=== PATIENT | female | born 1950 | race Caucasian/White ===

== ENCOUNTER → 2017-04-24 | Outpatient (CLI) | payer OTHER, MEDICARE | LOC: FIMAGING 09:40 | PROVIDERS: ATTEND Obstetrics & Gynecology Gynecology | DX: Z12.31 Encounter for screening mammogram for malignant neoplasm of breast (principal) | CPT/HCPCS: G0202 ==

== ENCOUNTER → 2017-04-25 | Outpatient (CLI) | payer OTHER, MEDICARE | LOC: BMCIMAGING 10:29 | PROVIDERS: ATTEND Internal Medicine | DX: M51.37 Other intervertebral disc degeneration, lumbosacral region (principal) ==

== ENCOUNTER → 2017-06-24 | Outpatient (CLI) | payer OTHER, MEDICARE | LOC: BMCIMAGING 07:16 | PROVIDERS: ATTEND Physician Assistant | DX: K76.0 Fatty (change of) liver, not elsewhere classified (principal); K76.89 Other specified diseases of liver; R16.0 Hepatomegaly, not elsewhere classified; I70.0 Atherosclerosis of aorta; Z90.49 Acquired absence of other specified parts of digestive tract ==

== ENCOUNTER → 2018-05-03 | Outpatient (CLI) | payer OTHER, MEDICARE | LOC: FIMAGING 14:41 | PROVIDERS: ATTEND Obstetrics & Gynecology Gynecology | DX: Z12.31 Encounter for screening mammogram for malignant neoplasm of breast (principal) ==

== ENCOUNTER 2018-05-22 11:55 | Inpatient (IN) | payer OTHER, MEDICARE ==
[2018-05-22 12:17] LABS: PLATELET COUNT 245 10^3/uL (150-400)
--- NOTE | 2018-05-22 12:19 | EDPHY ---
HPI/HX/ROS/PE/MDM Narrative: CLINICAL IMPRESSION: Run of ventricular tachycardia during stress test, intermittent chest pain x2 months ASSESSMENT/PLAN: This is a 68-year-old female with a history of diabetes, hypertension, hyperlipidemia, presents to the emergency department from [facility] Cardiology after she apparently had a 2 min run of ventricular tachycardia during a nuclear treadmill stress test ordered by her PCP. Patient reportedly came out of tachycardia only when she vagal'd. She arrives in the ED having received 4 aspirin, sublingual nitro, and is currently chest pain-free. She reports a 2 month history of intermittent epigastric pain and shortness of breath awakens her at night and was scheduled for stress test today by her primary care doctor. She has never seen a public service administrator. Case discussed with Dr. Sunday Denton who took the patient to the agriculture laborer from the ER. Discussed with Dr. Pena. Patient will be admitted to the PCU following her procedure with further cardiac evaluation. DIFFERENTIAL DX: Differential includes but not limited to ACS, acute PA, cardiac arrhythmia ED PROCEDURES: See lab and imaging results below ED COURSE: 12:15 p.m.: Case discussed with Nkechi Miller from Cardiology. They will come to the ED to evaluate the patient and likely take to the agriculture laborer. CHIEF COMPLAINT: V-tach during stress test HPI: This is a 68-year-old female with past medical history of hyperlipidemia, diabetes, and a BMI of 30 who presents to the emergency department from [facility] cardiology office where she was undergoing nuclear treadmill stress test this morning. Patient was reportedly scheduled for a stress test by her primary care doctor [facility] and has not ever seen a public service administrator. She reports during the stress test she she felt as though her heart was going to pound out of her chest and then she felt like she was going to faint. She has never had cardiac problems before. She also reports no history of hypertension but reportedly was hypertensive at 230 systolic prior to the procedure. She received sublingual nitro and 4 aspirin prior to arrival. She is currently chest pain-free. No recent travel although she does travel frequently. No leg pain or history of PE or DVT. PMH: Hypertension, hyperlipidemia, diabetes, BMI of 30 Pertinent Past Surgical History: None reported Family History: Father had pacemaker defibrillator placed in his 60s Social History: quit smoking 20 years ago REVIEW OF SYSTEMS: All other systems negative Constitutional: No fever, no chills, appetite change. ENT: No sore throat, congestion, ear pain. Cardiovascular: No chest pain, no palpitations. Respiratory: No cough, no shortness of breath. Gastrointestinal: No abdominal pain, no vomiting, diarrhea. Musculoskeletal: No back pain, joint swelling, joint pain, myalgias. Skin: No rashes, color change. Neurological: No headache, dizziness, weakness. PHYSICAL EXAM: General Appearance: Alert, oriented, appropriate, cooperative, NAD, well hydrated, non-toxic appearing, hypertensive, remainder of VSS, no hypoxia. HEENT: Oropharynx clear is no erythema or exudates, no tonsillar hypertrophy or asymmetry. Dentition without abnormality. Neck: Supple, nontender, no lymphadenopathy, no midline pain, FROM, no meningismus. Respiratory: There are no retractions, lungs are clear to auscultation. Cardiac: Regular rate and rhythm, no murmurs or gallops. Gastrointestinal: Abdomen is soft, nontender, bowel sounds normal, no masses/ hernia, no rigidity, guarding or focal peritoneal findings. Neurological: Alert and oriented x 3, CN 2-12 grossly intact, normal gait no ataxia, DTR's intact, normal sensation and strength Skin: Warm, dry, no rashes, no nodules on palpation. Musculoskeletal: Extremities are symmetrical, full range of motion, no tenderness, deformity, swelling, or erythema, no asymmetric LE swelling or calf pain. Psychiatric: Patient is oriented X 3, there is no agitation. MEDICAL DECISION MAKING: Patient was seen independently. Secondary supervising physician at time of evaluation was Dr Pena . Diagnosis: intermittent epigastric pain x 2 months, abnormal stress test today . New, requires workup Summary: See Assessment and Plan for summary of ED visit Clinical lab tests: ordered / reviewed. Independent visualization of images, tracing, or specimens: Yes . Decision to obtain medical records or history from someone other than the patient: [facility] Cardiology Discussed patient with another provider: Dr Pena who spoke with Dr. Denton Patient Progress: stable . (Sunday Ray) - Data Points Laboratory Results: Laboratory Results 05/22/18 12:00 05/22/18 12:00 Medications Given: Acetaminophen (Tylenol) 325 - 650 mg PO Q6 PRN PRN Reason: Pain, Mild to moderate Stop: 11/18/18 21:29 Last Admin: 05/23/18 05:16 Dose: 650 mg Discontinued Medications Amlodipine Besylate (Norvasc) 10 mg PO ONCE ONE Stop: 05/23/18 08:31 Last Admin: 05/23/18 08:28 Dose: 10 mg Point of Care Test Results: Chemistry 05/22/18 12:05 POC Troponin I 0.00 ng/mL ng/mL (0.00-0.08) General Time Seen by Provider: 05/22/18 12:05 Initial Vital Signs: Initial Vital Signs Temperature (C) 36.4 C 05/22/18 11:59 Heart Rate 107 H 05/22/18 11:59 Respiratory Rate 20 05/22/18 11:59 Blood Pressure 176/114 H 05/22/18 11:59 O2 Sat (%) 92 05/22/18 11:59 O2 Delivery Mode Room Air Allergies/Adverse Reactions: No Known Allergies Allergy (Unverified 08/07/12 11:47) Home Medications: Medication Instructions Recorded Cetirizine [ZyrTEC 10 mg (*)] 10 mg PO DAILY PRN 05/22/18 Cholecalciferol Vit D3 [Vitamin D3 1,000 units PO HS 05/22/18 (*)] Diclofenac Sodium [Voltaren 75 MG 75 mg PO BID 05/22/18 (*)] Omeprazole 40 mg PO DAILY@18 05/22/18 Simvastatin 40 mg PO HS 05/22/18 metFORMIN HCL [Glucophage 500 mg 500 mg PO BIDMEAL 05/22/18 (*)] Departure - Departure Disposition: To OP Cath/Surgery Clinical Impression: Abnormal stress test Condition: Fair
[2018-05-22 12:23] LABS: INR 0.93 (0.83-1.16); PROTIME(PATIENT) 12.7 SEC (12.0-15.0)
--- NOTE | 2018-05-22 12:26 | CPEKG ---
Test Reason : OPEN Blood Pressure : / mmHG Vent. Rate : 091 BPM Atrial Rate : 090 BPM P-R Int : 202 ms QRS Dur : 107 ms QT Int : 362 ms P-R-T Axes : 071 -03 074 degrees QTc Int : 446 ms Sinus rhythm Abnormal R-wave progression, early transition Confirmed by Tomi Pena ([id number]) on 05/22/2018 12:25:46 PM Referred By: Confirmed By:Tomi Pena
[2018-05-22] MEDS ORDERED: MIDAZOLAM 2 MG/2 ML VIAL ONE ×2 (13:11→13:53)
[2018-05-22] MEDS ORDERED: HEPARIN 10,000 UNIT/10 ML MDV (1,000 UNIT/ML) ONE (13:11)
[2018-05-22] MEDS ORDERED: VERAPAMIL 5 MG/2 ML VIAL ONE (13:11)
[2018-05-22] MEDS ORDERED: IOPAMIDOL (ISOVUE-370) 150 ML BTL IV ONE (13:11)
[2018-05-22] MEDS ORDERED: fentaNYL 100 MCG/2 ML INJ ONE ×2 (13:11→13:53)
[2018-05-22] MEDS ORDERED: LIDOCAINE 1% 300 MG/30 ML SDV ONE (13:11)
[2018-05-22] MEDS ORDERED: ATROPINE SULFATE 1 MG/10 ML SYR IVP PRN (14:14)
[2018-05-22] MEDS ORDERED: HYDROCODONE/APAP 5/325 TAB PO PRN (14:14)
[2018-05-22] MEDS ORDERED: ONDANSETRON 4 MG/2 ML VIAL IVP PRN (14:14)
[2018-05-22] MEDS ORDERED: NITROGLYCERIN 0.4 MG BTL SL PRN (14:14)
[2018-05-22] MEDS ORDERED: OXYCODONE/APAP 5/325 TAB PO PRN (14:14)
--- NOTE | 2018-05-22 14:42 | GHP ---
DATE OF ADMISSION: 05/22/2018 CHIEF COMPLAINT: Rapid heart rhythm during stress test. HISTORY OF PRESENT ILLNESS: The patient is a 68-year-old patient with a history of elevated fasting glucose and dyslipidemia, who presented to the emergency department following an abnormal stress test . The patient has recently been awakened on several occasions with chest discomfort and pressure and tightness located on the lower portion of her sternum, which has awakened her from sleep. She was s een by her primary care physician, Dr. Albertina Foote, at the [facility] where a stress test was recommended. At that time, for the first time in her life she was noted to be hypertensive, per the patient's report. The patient was slated for a nuclear stress test today, and shortly after ini tiating the test, the patient had occasional PVCs and then initiation of a wide-complex tachycardia w ith evidence of probable fusion beats, most consistent with underlying ventricular tachycardia. This did appear to be sustained and was greater than 30 seconds in duration, but less than 1 minute. Dur ing the episode, the patient noted a sensation that her heart was pounding in her chest and was radia ting to her neck, arm, and jaw. She also had tightness, which did not feel like an elephant on her c hest, but felt like someone was sitting on her chest or that there was a tightness in her chest and a wareness. She also had lightheadedness that felt as if she might pass out, which has never happened to her previously. She leads a relatively sedentary lifestyle and does not exercise from a cardiovascular standpoint rou can. She lives much of the year in [place] and walks occasionally on the beach and sometimes cycle s on a stationary bike. She has not noted orthopnea, PND (paroxysmal nocturnal dyspnea), chest pain with exertion, or decline in exercise tolerance. CURRENT MEDICATIONS: Include metformin and simvastatin she believes at 40 mg a day. She also takes diclofenac 75 mg twice daily. ALLERGIES: She is not known to be allergic to medications. PAST MEDICAL HISTORY: Significant for elevated fasting blood sugar and dyslipidemia. She has not whittington d a history of hypertension in the past. FAMILY HISTORY: Pertinent for the fact that her father had an electrical problem and one of the firs t defibrillators in the [place] following an electrophysiologic study that was performed in [facility]. Her dad ultimately lived to age 96. The patient's younger brothers both prematurely. On e of the brothers had paranoid schizophrenia and was found at home. He was on multiple medications f or his paranoid schizophrenia and at age 33. Her other brother in an automobile accident a t age 29, and she believes the autopsy did reveal evidence of drowning. It is unclear why he was caitlin ble to escape the submerged car. SOCIAL HISTORY: Pertinent for the fact that she stopped smoking in the 1980s and has less than a 20- pack-year history of smoking. She does not abuse alcohol or illicit drugs. PHYSICAL EXAMINATION: GENERAL: Today, the patient is somewhat anxious. VITAL SIGNS: Blood pressur e 172/100. Heart rate is 81 and regular. Respirations 16, unlabored. NECK: Reveals no JVD or pina tid bruit. HEART: Reveals a normal S1 and S2 with somewhat distant heart sounds secondary to her melani dy habitus. I do not appreciate an S3 or S4. She does not have evidence of a murmur. LUNGS: Clear to auscultation bilaterally without wheezes, rales, or rhonchi. ABDOMEN: Obese, with positive bowel sounds. It is nondistended and nontender. EXTREMITIES: Warm, dry, and well perfused without signi ficant peripheral edema. PERTINENT TEST RESULTS: Laboratory studies reveal a white count of 6.04, H and H of 13.8 and 41.2, w ith a platelet count of 245. Her coagulation numbers reveal PT/INR of 12.7 and 0.93, with an aPTT of 25.5. Her blood chemistry is unremarkable with a sodium of 138, potassium 4.5, BUN and creatinine o f 15 and 0.8, with a glucose of greater than 119. Her calcium level is 9.5, and the uzbux-co-buxc tr oponin I is 0.00. Review of the EKG portion of the nuclear stress test reveals a wide-complex tachycardia that was sust ained with intermittent episodes of a fusion beat, which would be most consistent with a wide-complex tachycardia, with ventricular tachycardia the most likely origin of the patient's rhythm disturbance . IMPRESSION AND PLAN: The patient has had chest pain at rest consistent with [place] [employer] class IV symptoms of angina. She has a high risk stress test given that she has sustained wi de-complex tachycardia, most likely monomorphic ventricular tachycardia, with associated fusion beats . I think it would be in her best interest to proceed with cardiac catheterization to rule out flow- limiting obstruction of her coronary circulation as a cause for her ventricular tachycardia associate d with exercise. I have explained the risks, benefits, and alternatives to this course of action wit h the patient, who understands and is willing to proceed as planned. If her catheterization is negat rand for flow-limiting obstruction of her coronaries, then I think it would be prudent to consider an electrophysiology study and evaluation with our electrophysiology service here at the hospital. /[id number]/MODL
--- NOTE | 2018-05-22 15:17 | PDMN ---
Medical Necessity Medical necessity: Pt meets IP criteria as of 05/22/2018 per and MCG [id number] ( ventricular arrhythmias); est los > 2 mn for ongoing tx of vtach sustained during stress test with suspected cardiac ischemia as cause or consequence of arrhythmia; requiring heart catheterization, possible PCI or EP study.
--- NOTE | 2018-05-22 19:23 | CPIP ---
DATE OF PROCEDURE: 05/22/2018 PROCEDURE PERFORMED: 1. Selective coronary angiography. 2. Left heart catheterization. 3. Left ventriculogram. 4. TR band arteriotomy. APPROACH: Right radial approach. COMPLICATIONS: None. INDICATION FOR THE PROCEDURE/APPROPRIATE USE CRITERIA: The patient has had chest pain at rest, awaki ng her from sleep. Described as a chest pressure and tightness. She underwent a nuclear stress test via Iglesia protocol exercise, which was complicated by a wide-complex tachycardia which was sustained and longer than 30 seconds, was relatively fast at a rate of greater than 200 beats per minute with associated symptoms of hypotension and lightheadedness. This was considered hemodynamically signific ant ventricular tachycardia which was sustained and this is therefore considered a high-risk stress t est. PROCEDURE IN DETAIL: After informed consent was obtained, n.p.o. status was confirmed, the region of the right wrist was cleaned, prepped, and draped in a sterile fashion. A plethysmography and trace assisted Augustine test was performed documenting a dual arterial supply to the index finger. The patien t then underwent the previously mentioned diagnostic procedures with use of L4 and JR4 coronary fina ters, as well as a 5-Vietnamese pigtail catheter. Standard wire exchange technique was utilized for all catheter exchanges. The right coronary artery lumen is approximately 3-1/2 mm in size and the vessel is dominant giving r ise to posterior descending as well as a posterolateral ventricular branch. No flow-limiting obstruc tion, dissection, or thrombus was identified. The LAD and circumflex arise from either a very short left main or from separate ostia from the left coronary cusp. The LAD then courses in its usual posi tion, gives rise to 2 important diagonal branches and courses the anterior apex without flow-limiting obstruction, dissection, or thrombus. The circumflex obtuse marginal system is also identified with manipulation of catheter and doing selective of that vessel. Visualization in the RADHA caudal, AP ca udal and THOMPSON caudal projection were accomplished. There was no evidence of flow-limiting obstruction , dissection, or thrombus within the left circumflex obtuse marginal system. There was WES-3 flow t hroughout the vessel. The patient underwent left heart catheterization demonstrating elevated left v entricular end-diastolic pressure measured at 17 mmHg. The patient underwent left ventriculogram in the THOMPSON projection, demonstrating preserved and hypercontractile left ventricular systolic function. Ejection fraction is 60% without evidence of resting segmental wall motion abnormalities, significan t mitral regurgitation or aortic stenosis. 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 There is no evidence of ji aneurys m or dissection on the basis of the study performed. SUMMARY OF FINDINGS: 1. Normal right-dominant coronary system without evidence of flow-limiting obstruction, dissection, or thrombus. 2. Normal left ventricular chamber size with preserved left ventricular systolic function. Ejection fraction of 60% without evidence of mitral regurgitation or aortic stenosis. There is also no evide nce of aortic dissection or aneurysm. The patient has sustained monomorphic wide-complex tachycardia, most likely consistent with ventricul ar tachycardia which is symptomatic and probably hemodynamically important given the patient's sympto ms. The patient does not have evidence of flow-limiting coronary disease or prior myocardial infarct ion on the basis of EKG or the heart catheterization performed today. We would like to proceed with a n echocardiogram to evaluate the patient's heart muscle performance and to rule out underlying valvul ar heart disease as a reason for the patient's recent change in clinical status. The patient would b enefit from a workup to evaluate the cause of this primary electrical disturbance. The patient does not have evidence of Brugada variant on the EKG. Does not have a short NV interval and no evidence o f a delta or epsilon wave is identified. The patient does not have long or short QT on the basis of the studies of the EKGs performed so far. The patient will benefit from a cardiac MRI to rule out ar rhythmogenic right ventricular dysplasia and may also benefit from evaluation to rule out systemic sa rcoid. At any rate, she will need an EP consultation and possible EP study versus an AICD implant. /[id number]/MODL
--- NOTE | 2018-05-22 19:57 | PDCARCONS ---
Cardiology Consult Reason for Consult: Electrophysiology consultation. Wide complex tachycardia Chief Complaint: Lightheadedness, palpitations, chest discomfort Requesting Physician: Dr. Sunday Denton History of Present Illness: 68-year-old female referred by Dr. Denton for evaluation of wide complex tachycardia and lightheadedness. [facility] Her and Jurgen Ortiz IN STORE MARKETING ASSOCIATE were present in the room at the time of this discussion. Patient has recently developed palpitations. Yesterday on treadmill stress testing at [facility] she developed a wide complex tachycardia associated with lightheadedness and chest discomfort. She was sent to the emergency department. She underwent coronary angiography today which did not show any flow-limiting lesions. Because of wide complex tachycardia, have been asked to visit with the patient. History Information - Allergies/Home Medication List Allergies/Adverse Reactions: No Known Allergies Allergy (Unverified 08/07/12 11:47) Home Medications: Cetirizine [ZyrTEC 10 mg (*)] 10 mg PO DAILY PRN 05/22/18 [Last Taken Unknown] Cholecalciferol Vit D3 [Vitamin D3 (*)] 1,000 units PO HS 05/22/18 [Last Taken 05/21/18] Diclofenac Sodium [Voltaren 75 MG (*)] 75 mg PO BID 05/22/18 [Last Taken 20:00] Omeprazole 40 mg PO DAILY@18 05/22/18 [Last Taken 05/21/18 20:00] Simvastatin 40 mg PO HS 05/22/18 [Last Taken 05/21/18 21:00] metFORMIN HCL [Glucophage 500 mg (*)] 500 mg PO BIDMEAL 05/22/18 [Last Taken 11/01 16:00] I have personally reviewed and updated: family history (Father is ICD because of ventricular tachycardia, brother 1 had sudden in single car accident, brother 2 had sudden related to cardiomyopathy), medical history, social history Past Medical History: - Social History Smoking Status: Former smoker Physical Exam Physical Exam: Temp Pulse Resp BP Pulse Ox 36.6 C 67 18 162/95 H 95 05/22/18 18:54 05/22/18 18:54 05/22/18 18:54 05/22/18 18:54 12/06/18 18:54 Constitutional: no apparent distress, appears nourished Eyes: PERRL, EOMI Ears, Nose, Mouth, Throat: moist mucous membranes, hearing normal Cardiovascular: regular rate and rhythym Skin: warm Neurologic: AAOx3 Psychiatric: interacting appropriately, not anxious, not encephalopathic, thought process linear Lab and Imaging 05/22/18 12:00 05/22/18 12:00 WBC 6.04 10^3/uL (3.80-9.50) 05/22/18 12:00 RBC 4.51 10^6/uL (4.18-5.33) 05/22/18 12:00 Hgb 13.8 g/dL (12.6-16.3) 05/22/18 12:00 Hct 41.2 % (38.0-47.0) 05/22/18 12:00 MCV 91.4 fL (81.5-99.8) 05/22/18 12:00 MCH 30.6 pg (27.9-34.1) 05/22/18 12:00 MCHC 33.5 g/dL (32.4-36.7) 05/22/18 12:00 RDW 13.3 % (11.5-15.2) 05/22/18 12:00 Plt Count 245 10^3/uL (150-400) 05/22/18 12:00 MPV 11.1 fL (8.7-11.7) 05/22/18 12:00 Neut % (Auto) 65.5 % (39.3-74.2) 05/22/18 12:00 Lymph % (Auto) 24.3 % (15.0-45.0) 05/22/18 12:00 [place] % (Auto) 6.8 % (4.5-13.0) 05/22/18 12:00 Eos % (Auto) 2.2 % (0.6-7.6) 05/22/18 12:00 Baso % (Auto) 0.7 % (0.3-1.7) 05/22/18 12:00 Nucleat RBC Rel Count 0.0 % (0.0-0.2) 05/22/18 12:00 Absolute Neuts (auto) 3.96 10^3/uL (1.70-6.50) 05/22/18 12:00 Absolute Lymphs (auto) 1.47 10^3/uL (1.00-3.00) 05/22/18 12:00 Absolute Monos (auto) 0.41 10^3/uL (0.30-0.80) 05/22/18 12:00 Absolute Eos (auto) 0.13 10^3/uL (0.03-0.40) 05/22/18 12:00 Absolute Basos (auto) 0.04 10^3/uL (0.02-0.10) 05/22/18 12:00 Absolute Nucleated RBC 0.00 10^3/uL (0-0.01) 05/22/18 12:00 Immature Gran % 0.5 % (0.0-1.1) 05/22/18 12:00 Immature Gran # 0.03 10^3/uL (0.00-0.10) 05/22/18 12:00 PT 12.7 SEC (12.0-15.0) 05/22/18 12:00 INR 0.93 (0.83-1.16) 05/22/18 12:00 APTT 25.5 SEC (23.0-38.0) 05/22/18 12:00 Sodium 138 mEq/L (135-145) 05/22/18 12:00 Potassium 4.5 mEq/L (3.5-5.2) 05/22/18 12:00 Chloride 105 mEq/L (97-110) 05/22/18 12:00 Carbon Dioxide 22 mEq/l (22-31) 05/22/18 12:00 Anion Gap 11 mEq/L (6-14) 05/22/18 12:00 BUN 15 mg/dL (7-23) 05/22/18 12:00 Creatinine 0.8 mg/dL (0.6-1.0) 05/22/18 12:00 Estimated GFR > 60 05/22/18 12:00 Glucose 119 mg/dL (70-100) H 05/22/18 12:00 Calcium 9.5 mg/dL (8.5-10.4) 05/22/18 12:00 POC Troponin I 0.00 ng/mL (0.00-0.08) 05/22/18 12:05 EKG Interpretation: Negative for: other (normal sinus rhythm) A/P Assessment: 1. Wide complex tachycardia 2. Family history of sudden in father and 2 brothers 3. Near syncope Plan: 68-year-old female with family history of sudden /ventricular tachycardia in 3 male relatives, normal left ventricular ejection fraction, normal coronary arteries. She is presenting with wide complex tachycardia. I have reviewed the tracings from [facility] exercise treadmill stress test from yesterday. These are consistent with a wide complex tachycardia with atypical left bundle branch block morphology, there are intermittent fusion beats. This is most likely ventricular tachycardia. Supraventricular tachycardia with aberrancy remains in the differential diagnosis. Given family history of sudden in male relatives, a cardiac MRI has been scheduled to rule out ARVC or other infiltrative diseases. I have recommended electrophysiology study. Risks and benefits of EPS/ablation including but not limited to risks of , myocardial infarction, stroke, tamponade which may require emergent cardiac surgery, AV block requiring implantation of a permanent pacemaker, vascular access complications which may require surgery, deep venous thrombosis, pulmonary embolism, infection, risks associated with sedation/anesthesia were discussed with the patient. If ventricular tachycardia is inducible, ICD implantation has been recommended. Risks of transvenous ICD implantation including but not limited to , myocardial infarction, stroke, cardiac tamponade which may require emergent cardiac surgery, infection, bleeding, pneumothorax, lead dislodgement and risks of sedation/anesthesia were discussed. Long-term issues like ICD pocket erosion , lead failure, venous stenosis, superior vena cava syndrome, need for lead extraction were discussed. Need for close long-term follow-up in our device clinic was emphasized. Need for generator change was discussed. We discussed that appropriate and inappropriate ICD shocks can occur. The risk of inappropriate ICD shocks is higher in patients with atrial fibrillation. I have offered 2nd opinion but the patient does not desire this. All the questions were answered. This was a complex discussion with the patient due to need for review of records, discussion of pathophysiology of disease and discussion regarding multiple treatment modalities. I spent 45 minutes with the patient, more than 50% of which was spent in counseling.
[2018-05-22] MEDS: ACETAMINOPHEN 325 MG TAB PO PRN (21:35)
[2018-05-23] MEDS: ACETAMINOPHEN 325 MG TAB PO PRN (05:16)
--- NOTE | 2018-05-23 09:23 | ECHO ---
[email or web address] [address] [address] Main: [phone] Fax: Transthoracic Echocardiogram Name: MOE BAÑUELOS MR#: [id number] Study Date: 05/22/2018 Study Time: 03:39 PM Date of : 1950 Age: 68 year(s) Height: 172.7 cm (68 in.) Weight: 90.72 kg (200 lb.) BSA: 2.04 m2 Gender: Female Examination: Echo Indication: Wide Complex Tachycardia Image Quality: Contrast: Requested by: uSnday Denton BP: 164 mmHg/85 mmHg Heart Rate: Rhythm: Indication: Wide Complex Tachycardia Procedure Staff Manager Graphic: Desean Reed RDCS Reading Physician: Murali Villarreal MD Requesting Provider: Conclusions: Normal size left ventricle. No LV hypertrophy. Normal global systolic LV function. EF is 62 %. No regional wall motion abnormality. The left atrium is normal in size. The right atrium is normal in size. The mitral valve is normal in appearance and function. The aortic valve is normal in appearance and function. The tricuspid valve is normal in appearance and function. No pericardial effusion. Measurements: Chambers Valvular Assessment AV/MV Valvular Assessment TV/PV Normal Normal Normal Name Value Range Name Value Range Name Value Range Ao Tiffanie (MM): 2.9 cm (2.2 cm-3.7 AV Vmax: 1.45 m/s (1 m/s-1.7 PV Vmax: 0.73 m/s (0.6 m/s-0.9 cm) m/s) m/s) IVSd (2D): 0.8 cm (0.6 cm-1.1 AV maxP mmHg ( - ) PV PGmax: 2 mmHg ( - ) cm) LVOT Vmax: 0.69 m/s (0.7 m/s-1.1 LVDd (2D): 5.2 cm (3.9 cm-5.3 m/s) cm) MV E Vmax: 0.74 m/s ( - ) LVDs (2D): 3.5 cm (2.1 cm-4 MV A Vmax: 1.22 m/s ( - ) cm) MV E/A: 0.61 ( - ) LVPWd (2D): 0.9 cm ( - ) LVEF (2D): 62 (>=54 %) Continued Measurements: Chambers Valvular Assessment AV/MV Patient: MOE BAÑUELOS Study Date: 05/22/2018 Page 1 of 2 03:39 PM Name Value Name Value LADs Lon.9 cm MV E' Septal: 0.05 m/s LA Area: 17.7 cm2 MV E/E' Septal: 13.50 LA Volume: 49 ml MV E/E' Lateral: 11.10 LA Volume Index: 24.0 ml/m2 Findings: Left Ventricle: Normal size left ventricle. No LV hypertrophy. Normal global systolic LV function. EF is 62 %. No regional wall motion abnormality. Diastolic dysfunction is present. . Right Ventricle: Normal size right ventricle. Left Atrium: The left atrium is normal in size. Right Atrium: The right atrium is normal in size. Mitral Valve: The mitral valve is normal in appearance and function. Aortic Valve: The aortic valve is normal in appearance and function. Tricuspid Valve: The tricuspid valve is normal in appearance and function. Pulmonic Valve: The pulmonic valve is normal in appearance and function. Aorta: The aorta is normal. Pericardium: No pericardial effusion. (No Signature Object) Patient: MOE BAÑUELOS Study Date: 05/22/2018 Page 2 of 2 03:39 PM [id number]
[2018-05-23] MEDS ORDERED: GADOBUTROL 10 ML VIAL IVP ONE (10:28)
--- NOTE | 2018-05-23 12:59 | ASMTCMCOM ---
CM Note CM Note Notes: Pts case discussed w/ Viktor, RN. Pt is a 68 y/o female admitted for vtach during a stress test. Pt will have a EP study on Saturday at 9AM. Pt will most likely d/c independent when medically stable. No therapies ordered at this time. CM available for changes. Plan: Independent Date Signed: 05/23/2018 12:58 PM Electronically Signed By:LUISITO Wong
--- NOTE | 2018-05-23 19:13 | PDCARPN ---
Cardiology Progress Note Chief Complaint: I am feeling well Assessment/Plan: Assessment: Sustained wide complex tachycardia with evidence on MRI of a myocardial scar in the inferior wall of the ventricle. I will leave it up to Dr. Encarnacion as to whether or not an EP study will be required now that we have that information. The MRI was specifically negative for ARVD. Plan: Keep in hosptial for EP study and possible ablation versus defibrillator under care of [facility] on Saturday. 05/23/18 19:10 Reviewed/Discussed With: family, hospitalist, multidisciplinary team Time Spent with Patient: greater than 25 minutes Time Spent with Patient: Greater than 25 minutes spent on this patients care, greater than 50% of time spent counseling, educating, and coordinating care regarding the above mentioned plan. Objective: Vital Signs (8 Hrs) Temp Pulse Resp BP Pulse Ox 05/23/18 15:14 36.7 C 72 18 142/70 H 93 05/23/18 14:44 37.2 C 71 12 153/81 H 96 Intake/Output (24 Hrs) 05/22/18 05/23/18 05/24/18 05:59 05:59 05:59 Intake Total 1490 1000 Balance 1490 1000 Intake: Oral (ml) 1090 1000 IV Intake (ml) 400 Other: Weight 93.1 kg Number of Voids Toilet 5 Result Diagrams: 05/22/18 12:00 05/22/18 12:00 Telemetry: occasional unifocal PVCs Echocardiogram: Relatively normal looking echocardiogram considering todays MRI results. - Physical Exam Constitutional: WDWN, no apparent distress Eyes: PERRL Ears, Nose, Mouth, Throat: moist mucous membranes Cardiovascular: regular rate and rhythm, no murmurs Respiratory: clear to auscultate bilat, no crackles, no wheezes, reduced air movement Gastrointestinal: normoactive bowel sounds, no tenderness, no masses Skin: no rashes Neurologic: AAOx3, CN II-XII grossly intact Psychiatric: cooperative, interactive, following commands - . Pending Discharge Within 24 Hours: No Pending Discharge Within 48 Hours: No ICD10 Worksheet Patient Problems: Problems Problem Status Onset Abnormal stress test Acute
[2018-05-24] MEDS: ACETAMINOPHEN 325 MG TAB PO PRN (05:34)
--- NOTE | 2018-05-24 10:30 | PDCARPN ---
Cardiology Progress Note Chief Complaint: No complaints today Assessment/Plan: Assessment/plan: Teofilo is a 68 y/o F admitted with greater then 30 seconds of VT (symptomatic) while on the treadmill. A Angiogram on 05/22 was negative for flow-limiting CAD. A cardiac MRI did suggest a small area of injury. Plan for EP study and possible ICD on saturday with Dr. Encarnacion. She is hypertensive and therefore I will add Norvasc 5 mg. 05/24/18 10:28 Subjective: She denies any CP, SOB, or palpitations. Objective: Vital Signs (8 Hrs) Temp Pulse Resp BP Pulse Ox 05/24/18 08:00 36.6 C 74 16 166/68 H 95 05/24/18 04:00 36.5 C 69 15 152/77 H 95 Intake/Output (24 Hrs) 05/23/18 05/24/18 05/25/18 05:59 05:59 05:59 Intake Total 1490 1480 Balance 1490 1480 Intake: Oral (ml) 1090 1480 IV Intake (ml) 400 Other: Weight 93.1 kg Intake Quantity Yes Sufficient Number of Voids Toilet 5 4 Result Diagrams: 05/22/18 12:00 05/22/18 12:00 Telemetry: NSR with PVC's - Physical Exam Constitutional: WDWN Cardiovascular: regular rate and rhythm, no murmurs, no rubs, no gallops Respiratory: clear to auscultate bilat, no crackles, no wheezes Skin: no edema Neurologic: AAOx3 ICD10 Worksheet Patient Problems: Problems Problem Status Onset Abnormal stress test Acute
[2018-05-24] MEDS: amLODIPine BESYLATE 5 MG TAB PO SCH (13:14)
[2018-05-25] MEDS: amLODIPine BESYLATE 5 MG TAB PO SCH (10:06)
--- NOTE | 2018-05-25 13:49 | PDCARPN ---
Cardiology Progress Note Assessment/Plan: 68 year old female with CAD risk factors. Had ventricular tachycardia that spontaneously terminated by an exercise treadmill test. Cardiac catheterization revealed no significant CAD. No further events. - She is scheduled tomorrow for an electrophysiology study and possible ICD implantation with Dr. Encarnacion. 05/25/18 13:50 Subjective: No complaints. Objective: Vital Signs (8 Hrs) Temp Pulse Pulse Pulse Pulse Resp BP 05/25/18 12:55 73 90 73 05/25/18 12:00 36.7 C 67 14 152/81 H 05/25/18 08:00 36.6 C 68 14 144/71 H BP BP BP Pulse Ox 05/25/18 12:55 138/79 H 113/82 H 143/77 H 05/25/18 12:00 93 05/25/18 08:00 95 Intake/Output (24 Hrs) 05/24/18 05/25/18 05/26/18 05:59 05:59 05:59 Intake Total 1480 3695 Output Total 325 350 Balance 1480 3370 -350 Intake: Oral (ml) 1480 3695 Output: Urine (ml) 325 350 Toilet 325 350 Other: Intake Quantity Yes Sufficient Number of Voids Toilet 4 2 Result Diagrams: 05/22/18 12:00 05/22/18 12:00 - Physical Exam Constitutional: WDWN, no apparent distress Eyes: anicteric sclera Ears, Nose, Mouth, Throat: moist mucous membranes Cardiovascular: regular rate and rhythm, no murmurs, no gallops Respiratory: clear to auscultate bilat Gastrointestinal: normoactive bowel sounds, no tenderness, no masses Skin: no edema Neurologic: AAOx3 Psychiatric: not anxious ICD10 Worksheet Patient Problems: Problems Problem Status Onset Abnormal stress test Acute
[2018-05-26 04:37] LABS: PLATELET COUNT 239 10^3/uL (150-400)
[2018-05-26 04:44] LABS: INR 1.04 (0.83-1.16); PROTIME(PATIENT) 13.8 SEC (12.0-15.0)
[2018-05-26] MEDS ORDERED: BACITRACIN 50,000 UNIT in SODIUM CL IRRIG SOLUTION 1,000 ML IRR ONE (07:30)
[2018-05-26] MEDS ORDERED: ceFAZolin 2 GM/DEXTROSE 100 ML IV ONE (07:30)
--- NOTE | 2018-05-26 08:00 | PDANEPAE ---
ANE History of Present Illness hx of vtach on treadmill test, neg cath ANE Past Medical History - Cardiovascular History Hx Hypertension: Yes Hx Arrhythmias: No Hx Chest Pain: No Hx Coronary Artery / Peripheral Vascular Disease: No Hx CHF / Valvular Disease: No Hx Palpitations: Yes - Pulmonary History Hx COPD: No Hx Asthma/Reactive Airway Disease: No Hx Recent Upper Respiratory Infection: No Hx Oxygen in Use at Home: No Hx Sleep Apnea: No - Neurologic History Hx Cerebrovascular Accident: No Hx Seizures: No Hx Dementia: No - Endocrine History Hx Diabetes: Yes Hypothyroid: No Hyperthyroid: No Obesity: mild - Renal History Hx Renal Disorders: No - Liver History Hx Hepatic Disorders: No - Neurological & Psychiatric Hx Hx Neurological and Psychiatric Disorders: No - Cancer History Hx Cancer: Yes Cancer History Comment: Basal cell removed. - Congenital Disorder History Hx Congenital Disorders: No - GI History GERD: mild Hx Gastrointestinal Disorders: Yes Gastrointestinal History Comment: GERD-med. 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 - Other Health History Other Health History: Temporary crown bottom R. - Chronic Pain History Chronic Pain: No - Surgical History Prior Surgeries: EX. abd lap. api. Tummy tuck. Facelift. Breast BX. ANE Review of Systems Review of systems is: negative Review of Systems: - Exercise capacity METS (RN): 4 METS ANE Patient History - Allergies Allergies/Adverse Reactions: No Known Allergies Allergy (Unverified 08/07/12 11:47) - Home Medications Home medications: home medication list seen and reviewed Home Medications: Cetirizine [ZyrTEC 10 mg (*)] 10 mg PO DAILY PRN 05/22/18 [Last Taken Unknown] Cholecalciferol Vit D3 [Vitamin D3 (*)] 1,000 units PO HS 05/22/18 [Last Taken 05/21/18] Diclofenac Sodium [Voltaren 75 MG (*)] 75 mg PO BID 05/22/18 [Last Taken 20:00] Omeprazole 40 mg PO DAILY@18 05/22/18 [Last Taken 05/21/18 20:00] Simvastatin 40 mg PO HS 05/22/18 [Last Taken 05/21/18 21:00] metFORMIN HCL [Glucophage 500 mg (*)] 500 mg PO BIDMEAL 05/22/18 [Last Taken 11/01 16:00] - NPO status NPO Status: no food or drink >8 hours - Anes Hx Anes Hx: post operative nausea, post operative nausea and vomiting - Smoking Hx Smoking Status: Former smoker Marijuana use: No - Alcohol Use Alcohol Use: Rarely - Family Anes Hx Family Anes Hx: none Family Hx Anesthesia Complications: none ANE Labs/Vital Signs - Labs Result Diagrams: 05/26/18 03:52 05/26/18 03:52 - Vital Signs Blood Pressure: 137/83 Heart Rate: 81 Respiratory Rate: 15 O2 Sat (%): 96 Height: 172.72 cm Weight: 93.1 kg ANE Physical Exam - Airway Neck exam: FROM Mallampati Score: Class 2 Mouth exam: normal dental/mouth exam - Pulmonary Pulmonary: no respiratory distress, clear to auscultation - Cardiovascular Cardiovascular: regular rate and rhythym, no murmur, rub, or gallop - ASA Status ASA Status: III ANE Anesthesia Plan Anesthesia Plan: general endotracheal anesthesia
[2018-05-26] MEDS ORDERED: HEPARIN 10,000 UNIT/10 ML MDV (1,000 UNIT/ML) ONE (08:01)
[2018-05-26] MEDS ORDERED: LIDOCAINE 1% 300 MG/30 ML SDV ONE (08:01)
[2018-05-26] MEDS ORDERED: ISOPROTERENOL HCL/D5W 0.2 MG/50 ML BAG IV ONE ×2 (08:02→09:58)
[2018-05-26] MEDS ORDERED: BUPIVACAINE 0.75% 10 ML SDV ONE (08:02)
[2018-05-26] MEDS ORDERED: fentaNYL 250 MCG/5 ML INJ ONE (08:03)
[2018-05-26] MEDS ORDERED: PROPOFOL 200 MG/20 ML VIAL ONE (08:03)
[2018-05-26] MEDS ORDERED: LIDOCAINE 2% 2 ML INJ ONE (08:04)
[2018-05-26] MEDS ORDERED: ROCURONIUM 50 MG/5 ML VIAL ONE (08:04)
[2018-05-26] MEDS ORDERED: MIDAZOLAM 2 MG/2 ML VIAL ONE (08:06)
--- NOTE | 2018-05-26 08:20 | PDGENHP ---
History & Physical Chief Complaint: palpitations, dizziness Relevant Physical Exam: s1s2 rrr cta ao3 Cardiorespiratory Assessment: for EPS. if VT induced ICD
[2018-05-26] MEDS ORDERED: DEXAMETHASONE 4 MG/ML VIAL ONE (09:01)
[2018-05-26] MEDS ORDERED: SUGAMMADEX SODIUM 200 MG/2 ML VIAL IVP ONE (11:00)
[2018-05-26] MEDS ORDERED: ONDANSETRON 4 MG/2 ML VIAL ONE (11:00)
--- NOTE | 2018-05-26 11:17 | EPPROC ---
Electrophysiology Procedure Note: ELECTROPHYSIOLOGIC STUDY AND CATHETER MEDIATED ABLATION FOR SUBEUSTACHIAN ISTHMUS DEPENDENT COUNTERCLOCKWISE ATRIAL FLUTTER: INDICATION: Wide complex tachycardia with slight irregularity intermittently PROCEDURES PERFORMED: 27964-84 EP evaluation with RA/RV/LA pace/record, with arrhythmia induction 06362-64 EP evaluation with RA/RV pace record, insert/reposition catheter, with arrhythmia induction 40324 SVT ablation 53210 3D mapping Fluoroscopy Catheters & Anesthesia: The patient arrived in the Electrophysiology Laboratory in the fasting state. The right clavicular region, right groin, and left groin area were prepped and draped in the usual sterile manner. Anesthesiologist Dr. Maribel Lin administered general anesthesia. Appropriate non-invasive blood pressure, pulse oximetry and end-tidal CO2 monitoring was established. All catheters were placed percutaneously using the modified Seldinger technique , and advanced into position under fluoroscopic guidance. One #7 Haitian deflectable octapolar electrode catheter was advanced to the His-bundle position via the left femoral vein (2mm spacing; except the proximal ring which was 25cm from the tip used for unipolar recordings). One #7 Haitian deflectable catheter with 10 pairs of electrodes was placed via the left femoral vein into the coronary sinus. One # 7 Haitian Halo catheter was inserted through the right femoral vein and was placed at the tricuspid annulus. Heparin was administered to keep ACT > 200 seconds. Programmed stimulation was performed from the right atrium, coronary sinus ( left atrium) and right ventricle. Parahisian pacing demonstrated all retrograde conduction over the AV node. Program stimulation from 2 sites in the right ventricle and through a lateral branch of the coronary sinus with and without isoproterenol, in graded doses up to 4 micrograms/minute did not induce any ventricular tachycardia. Patient had wide complex rhythm with some irregularity during treadmill stress testing. Patient had 3 inducible episodes of atrial flutter, 1 of which required cardioversion Atrial flutter, CL 210 ms was easily induced by CS pacing. Entrainment mapping from lateral TA, septal TA, proximal CS and distal CS confirmed cavotricuspid isthmus dependent atrial flutter. In preparation for ablation of typical atrial flutter, a high-resolution 3D (3 dimensional) Carto electroanatomical map of the sub-Eustachian isthmus and right atrium was obtained during pacing of the posterolateral coronary sinus. For ablation of typical atrial flutter, one Mobi sheath was placed in the right atrium. A #8 Haitian deflectable quadrapolar electrode catheter (2mm-5mm-2mm spacing) with 3.5 mm irrigated tip electrode and location sensor for the [employer] mapping system was inserted in the long sheath and advanced to the right atrium. Radiofrequency applications were applied between the tricuspid annulus at 0630 oclock as seen in the RADHA view and the inferior vena cava. This achieved conduction block across the isthmus. Septal to lateral conduction time 175 milliseconds. Post ablation, a high-resolution electroanatomical map of the sub-Eustachian isthmus was obtained during pacing of the posterolateral coronary sinus. This confirmed conduction block across the sub-Eustachian isthmus. Bidirectional block was also confirmed by pacing. The catheters were removed. The Sheaths were removed in the EP lab after applying subcutaneous purse string suture. The patient was transferred to the cardiovascular holding area in stable condition. There were no apparent complications. Results: A. Spontaneous Intervals: Pre ablation SCL 740 ms AH 80 ms HV 45 ms B. Antegrade AV amilcar function (decremental pacing) Pre ablation FPERP 370 ms WBB CL 360 ms C. Retrograde AV amilcar function (decremental pacing) Pre ablation FPERP 380 ms WBB CL 370 ms CONCLUSIONS: 1. Cavotricuspid isthmus dependent counterclockwise atrial flutter. 2. Successful catheter mediated ablation of cavotricuspid isthmus achieving bi -directional conduction block across cavotricuspid isthmus. 3. No ventricular arrhythmias inducible. 4. No apparent complications. Patient Problems: Problems Problem Status Onset Abnormal stress test Acute
--- NOTE | 2018-05-26 11:20 | EPPROC ---
Electrophysiology Procedure Note: PROCEDURE PERFORMED: Implantation of SJM Confirm Implantable Loop Recorder INDICATION: PROCEDURE NOTE: Patient was on table after EP study. L parasternal area was prepped and draped. Lidocaine plus bupivacaine was used for local anesthesia. Using provided insertion tool, CONFIRM device was placed along the 4th intercostal space. Appropriate dressing was applied. The patient left the cardiac catheterization laboratory in stable condition. Serial Numbers: SJM Confirm SN [id number] Programming: Auto Activated events HR <40 bpm >150 bpm asystole >3 s Patient Problems: Problems Problem Status Onset Abnormal stress test Acute
[2018-05-26] MEDS ORDERED: fentaNYL 100 MCG/2 ML INJ IVP PRN (11:25)
[2018-05-26] MEDS ORDERED: PROMETHAZINE HCL 25 MG/ML INJ IVP PRN (11:25)
[2018-05-26] MEDS ORDERED: NALOXONE HCL 0.4 MG/ML INJ IVP PRN (11:25)
[2018-05-26] MEDS ORDERED: MEPERIDINE 25 MG/0.5 ML AMP IVP PRN (11:25)
--- NOTE | 2018-05-26 11:25 | POSTANESTH ---
Post Anesthetic Evaluation Cardiovascular Status: Normal, Stable Respiratory Status: Normal, Stable Level of Consciousness/Mental Status: Can Participate in Eval Pain Control: Adequate, Prn Tx Ordered Nausea/Vomiting Control: Adequate, Prn Tx Ordered Complications Possibly Related to Anesthesia: None Noted
[2018-05-26] MEDS ORDERED: KETOROLAC 15 MG/1 ML SDV IVP ONE (13:00)
[2018-05-26] MEDS: amLODIPine BESYLATE 5 MG TAB PO SCH (14:55)
--- NOTE | 2018-05-26 16:17 | CPEKG ---
Test Reason : OPEN Blood Pressure : / mmHG Vent. Rate : 082 BPM Atrial Rate : 082 BPM P-R Int : 220 ms QRS Dur : 104 ms QT Int : 384 ms P-R-T Axes : 073 -15 061 degrees QTc Int : 449 ms Sinus rhythm First degree AV block. Borderline left axis deviation Confirmed by Gunner Vizcaino ([id number]) on 05/26/2018 4:17:17 PM Referred By: Confirmed By:Gunner Vizcaino
[2018-05-26] MEDS: ACETAMINOPHEN 325 MG TAB PO PRN (17:52)
[2018-05-27] MEDS: ACETAMINOPHEN 325 MG TAB PO PRN (03:31)
[2018-05-27 03:41] LABS: PLATELET COUNT 240 10^3/uL (150-400)
[2018-05-27 07:50] VITALS: BP 138/73
[2018-05-27] MEDS: amLODIPine BESYLATE 5 MG TAB PO SCH (08:08)
[2018-05-27] MEDS ORDERED: ASPIRIN 81 MG CHEWABLE TAB PO SCH (09:00)
--- NOTE | 2018-05-27 13:16 | ECHO ---
[email or web address] [address] [address] Main: [phone] Fax: Transthoracic Echocardiogram Name: MOE BAÑUELOS MR#: [id number] Study Date: 05/27/2018 Study Time: 08:23 AM Date of : 1950 Age: 68 year(s) Height: 172.7 cm (68 in.) Weight: 92.99 kg (205 lb.) BSA: 2.07 m2 Gender: Female Examination: Echo Indication: F/U post EP study Image Quality: Adequate Contrast: Requested by: Babatunde Encarnacion BP: 136 mmHg/73 mmHg Heart Rate: Rhythm: Indication: F/U post EP study Procedure Staff Brim Greaser Operator: Monika Ruiz [facility] Reading Physician: Babatunde Encarnacion MD Requesting Provider: Conclusions: Normal global systolic LV function. Diastolic function is indeterminate. Mild mitral valve regurgitation is present. Measurements: Chambers Valvular Assessment AV/MV Valvular Assessment TV/PV Normal Normal Normal Name Value Range Name Value Range Name Value Range Ao Tiffanie (MM): 3.2 cm (2.2 cm-3.7 AV Vmax: 1.57 m/s (1 m/s-1.7 TR Vmax: 2.36 mm/s ( - ) cm) m/s) TR PGmax: 22 mmHg ( - ) IVSd (2D): 0.9 cm (0.6 cm-1.1 AV maxP mmHg ( - ) syst. PAP: 27 mmHg ( - ) cm) LVOT Vmax: 0.84 m/s (0.7 m/s-1.1 LVDd (2D): 5.0 cm (3.9 cm-5.3 m/s) cm) KENDALL (Vmax): 1.7 cm2 ( - ) LVDs (2D): 3.8 cm (2.1 cm-4 MV E Vmax: 1.01 m/s ( - ) cm) MV A Vmax: 1.28 m/s ( - ) LVPWd (2D): 1.0 cm ( - ) MV E/A: 0.79 ( - ) LVOTd 2.0 cm 2.0 cm mm LVEF (BP): 53 % (>=55 %) RVDd(2D): 2.8 cm (1.9 cm-3.8 cmmm) Continued Measurements: Chambers Valvular Assessment AV/MV Valvular Assessment TV/PV Name Value Name Value Name Value LADs: 3.7 cm MV DecTime: 264 m/s CVP (est.): 5 mmHg LADs Lon.9 cm MV E' Septal: 0.05 m/s LA Area: 18.8 cm2 MV E/E' Septal: 22.10 LA Volume: 60 ml MV E/E' Lateral: 20.30 Patient: MOE BAÑUELOS Study Date: 05/27/2018 Page 1 of 2 08:23 AM LA Volume Index: 29.0 ml/m2 TAPSE: 1.6 cm RA Area: 15.2 cm2 Findings: Left Ventricle: Normal size left ventricle. No LV hypertrophy. Normal global systolic LV function. EF is 53 %. No regional wall motion abnormality. Diastolic function is indeterminate. Right Ventricle: Normal size right ventricle. Normal RV function. Left Atrium: The left atrium is normal in size. Right Atrium: The right atrium is normal in size. Mitral Valve: The mitral valve is normal in appearance and function. Mild mitral valve regurgitation is present. No mitral stenosis is present. Aortic Valve: The aortic valve is tri-leaflet and functions normally. Trivial aortic valve regurgitation. No aortic valve stenosis is present. Tricuspid Valve: The tricuspid valve is normal in appearance and function. Trivial to mild tricuspid valve regurgitation. Right ventricular systolic pressure measures 27mmHg. The pulmonary artery pressure is normal. Pulmonic Valve: Pulmonary valve not well visualized. There is no pulmonic regurgitation seen. Aorta: Normal size aortic root measuring 3.2 cm. IVC: No foreign body in inferior vena cava. Normal size and course of the IVC. Pericardium: Trivial anterior pericardial effusion. Exam Comments: Limited parasternal window due to recent link and surgical dressing. (No Signature Object) Patient: MOE BAÑUELOS Study Date: 05/27/2018 Page 2 of 2 08:23 AM [id number]
--- NOTE | 2018-05-27 16:29 | GDS ---
SUPERVISING F[employer] PACKER: Dr. Babatunde Encarnacion, Dr. Juan Manuel Meyers, Dr. Sunday Denton ADMISSION DIAGNOSES: 1. Wide-complex tachycardia. 2. Family history of sudden cardiac DISCHARGE DIAGNOSES: 1. Hypertension. 2. Atrial flutter status post ablation. PROCEDURES PERFORMED: 1. Electrocardiogram. 2. Echocardiogram. 3. Coronary angiography. 4. Left heart catheterization. 5. EP study. 6. Atrial flutter ablation. 7. Implanted loop recorder (Confirm). 8. Cardiac MRI HOSPITAL COURSE: The patient presented May 22, 2018 after onset of symptomatic wide-complex tachycardia during her treadmill stress test at [facility]. The ECG tracings at that time demonstrated wide- complex tachycardia concerning for VT, especially in the setting of concerning family history positive for multiple members with sudden cardiac . The patient underwent subsequent left heart catheterization with Dr. Sunday Denton , which demonstrated normal coronary arteries without evidence of flow limiting obstruction, dissection, or thrombus. Subsequent cardiac MRI demonstrated a small focus of transmural wall thickening and diminished perfusion involving the distal inferior wall of the left ventricle at the apex, possibly suggestive of prior ischemia. MRI was otherwise unremarkable without evidence of arrhythmogenic RV dysplasia. In the setting of her concerning family history and wide-complex tachycardia during treadmill stress, the patient underwent EP study with Dr. Babatunde Encarnacion yesterday on May 26. No inducible ventricular arrhythmias were noted during this procedure. Atrial flutter was easily induced and was subsequently ablated at the cavotricuspid isthmus achieving bidirectional conduction block. Confirm implantable loop recorder placed for further monitoring. The patient has done very well in the postprocedure period without any issues overnight. Echocardiogram this morning, laboratory studies and ECG are all stable. She is appropriate for discharge home today. PHYSICAL EXAMINATION: GENERAL: Alert and oriented x4. No apparent distress. VITAL SIGNS: Blood pressure 138/73, heart rate 68, SpO2 98% on room air, temperature 36.8 degrees Celsius. CARDIOVASCULAR: Regular rate and rhythm, S1 , S2 without S3, S4, murmurs, gallops, or rubs. RESPIRATORY: Lungs are clear to auscultation. No adventitious breath sounds. No accessory muscle use. SKIN : Watts, warm, and dry. No cyanosis. No clubbing. No peripheral edema. EXTREMITIES: Pulses 2+ bilaterally. Bilateral pursestring sutures removed intact without evidence of hematoma, redness, oozing, swelling or warmth from the groin access sites. LABORATORY STUDIES: CBC this morning is stable along with BMP. Troponin 0.228 this morning. PROCEDURES: Electrophysiology study, atrial flutter ablation, cardiac MRI, and loop recorder implant as mentioned above. Postprocedure echocardiogram is stable without evidence of systolic dysfunction, wall-motion abnormalities, or pericardial effusion. Electrocardiogram done today demonstrates normal sinus rhythm with a prolonged TX interval as consistent with baseline prior to ablation yesterday. DISCHARGE MEDICATIONS: Please see discharge med reconciliation sheet. Note that the patient has been started on metoprolol 25 mg twice daily. This prescription has been sent electronically to her pharmacy via our clinic EMR. DISCHARGE INSTRUCTIONS: Post atrial flutter ablation and ILR discharge instructions reviewed in detail with patient and her . We discussed restrictions for heavy lifting, avoidance of submerged bathing, and signs and symptoms of hematoma, infection, DVT, or other concerning symptoms. She will contact our clinic if she experiences any new or concerning symptoms prior to her followup visit. She will follow up with Dr. Encarnacion in 4 weeks. /[id number]/MODL MTDD
[2018-05-27] MEDS ORDERED: METOPROLOL TARTRATE 25 MG TAB PO SCH (21:00)
--- NOTE | 2018-05-27 21:26 | ASDISCHSUM ---
Discharge Information Plan Status:Home with No Needs Medically Cleared to Leave:05/26/2018 Discharge Date:05/26/2018 CM D/C Disposition:Home, Routine, Self-Care ADT D/C Disposition:Home, Routine, Self-Care Projected Discharge Date:05/26/2018 Transportation at D/C: Discharge Delay Reason: Follow-Up Date:05/26/2018 Discharge Slot: Final Diagnosis: Placement Information Patient Contact Information Contact Name:GENE Relationship: Address:[address] City:[place] Alternate Phone: [facility]/Zip Code:[place] [address] Email: Financial Information Financial Class:Medicare Primary Plan Desc:MEDICARE INPATIENT Primary Plan Number:[id number] Secondary Plan Desc:[employer]/MDR SUPPLEMENT Secondary Plan Number:[id number] Assessment Information LACE LACE Length of stay for Answers: 4-6 days current admission Acuity / Level of Answers: Yes Care: Did the patient have an inpatient admission? Comorbidities - select Answers: Diabetes (uncontrolled or all that apply controlled) Other Notes: HTN; HLD # of Emergency department Answers: 1-2 visits in the last 6 months Score: 10 Date Signed: 05/27/2018 10:24 AM Electronically Signed By:Karli Spear RN [facility] CM Progress Note CM Note CM Note Notes: Pts case discussed w/ SUSU Hoang. Pt is a 68 y/o female admitted for vtach during a stress test. Pt will have a EP study on Saturday at 9AM. Pt will most likely d/c independent when medically stable. No therapies ordered at this time. CM available for changes. Plan: Independent Date Signed: 05/23/2018 12:58 PM Electronically Signed By:LUISITO Wong Case Management Discharge Plan Note Case Management Discharge Discharge Order Complete? Answers: Yes Patient to Obtain Answers: Independently Medications Transportation Arranged Answers: Family/Friends Discharge Comments Notes: 05/27/2018 Case Management Note Pt to discharge independent with follow up as directed. There are no further identified discharge case management needs. Date Signed: 05/27/2018 10:26 AM Electronically Signed By:Karli Spear RN Intervention Information
--- NOTE | 2018-05-28 05:57 | CPEKG ---
Test Reason : OPEN Blood Pressure : / mmHG Vent. Rate : 065 BPM Atrial Rate : 065 BPM P-R Int : 233 ms QRS Dur : 106 ms QT Int : 396 ms P-R-T Axes : 073 -02 067 degrees QTc Int : 412 ms Sinus rhythm Prolonged UT interval Abnormal R-wave progression, early transition Confirmed by Gunner Vizcaino ([id number]) on 05/28/2018 5:56:42 AM Referred By: Confirmed By:Gunner Vizcaino
== END 2018-05-27 10:53 | disposition home or self-care (01) | DRG 274 ==
LOC: EDUNIT# → SUPCPDRO 11:55 → OBSVTOIN 14:16 → F2W 16:45
PROVIDERS: ADMIT Internal Medicine Cardiovascular Disease; ATTEND Internal Medicine Cardiovascular Disease
PROC: 4A023N7 Measurement of Cardiac Sampling and Pressure, Left Heart, Percutaneous Approach (ICD-10-PCS; 2018-05-22)
PROC: B2111ZZ Fluoroscopy of Multiple Coronary Arteries using Low Osmolar Contrast (ICD-10-PCS; 2018-05-22)
PROC: B2151ZZ Fluoroscopy of Left Heart using Low Osmolar Contrast (ICD-10-PCS; 2018-05-22)
PROC: 02583ZZ Destruction of Conduction Mechanism, Percutaneous Approach (ICD-10-PCS; principal; 2018-05-26)
PROC: 0JH632Z Insertion of Monitoring Device into Chest Subcutaneous Tissue and Fascia, Percutaneous Approach (ICD-10-PCS; principal; 2018-05-26)
PROC: 3E053KZ Introduction of Other Diagnostic Substance into Peripheral Artery, Percutaneous Approach (ICD-10-PCS; principal; 2018-05-26)
PROC: 02K83ZZ Map Conduction Mechanism, Percutaneous Approach (ICD-10-PCS; principal; 2018-05-26)
PROC: 4A023FZ Measurement of Cardiac Rhythm, Percutaneous Approach (ICD-10-PCS; principal; 2018-05-26)
DX: I48.3 Typical atrial flutter (principal); E11.9 Type 2 diabetes mellitus without complications; I10 Essential (primary) hypertension; E78.5 Hyperlipidemia, unspecified
CPT/HCPCS: 84484-PO; A9585; C1731; C1732; C1764; C1766; C1769; J0690; J1100; J1644; J1885; J2250; J2405; J2704; J3010; Q9967